=== PATIENT | male | born 1970 | race Caucasian/White ===

== ENCOUNTER → 2020-07-30 | Outpatient (CLI) | payer OTHER | LOC: SJCVCIMAG 08:44 | PROVIDERS: ATTEND Internal Medicine Cardiovascular Disease | DX: R00.0 Tachycardia, unspecified (principal); I49.3 Ventricular premature depolarization; I25.10 Atherosclerotic heart disease of native coronary artery without angina pectoris; R07.9 Chest pain, unspecified; R06.00 Dyspnea, unspecified; R53.83 Other fatigue ==

== ENCOUNTER 2020-08-03 07:59 | Observation (INO) | payer OTHER ==
[2020-08-03] VITALS (11 sets, daily range): BP systolic 108–148; BP diastolic 59–82
[~2020-08-03] VITALS: Ht 172.7 cm; Wt 102.1 kg
[2020-08-03 08:49] LABS: HEMATOCRIT 46.7 % (42.0-52.0); HEMOGLOBIN 15.8 gm/dL (14.0-18.0); MCH 30.6 pg (26.0-34.0); MCHC 33.9 g/dL (28.0-37.0); MCV 90.4 fL (80.0-100.0); RBC 5.17 mil/uL (4.50-6.00); RDW 13.2 % (10.5-14.5); WBC 7.9 thou/uL (4.0-11.0)
[2020-08-03] MEDS ORDERED: LIPITOR40 MG PO (08:50)
[2020-08-03] MEDS ORDERED: ASA81BEC PO (08:50)
[2020-08-03] MEDS ORDERED: TOPROL XL50 MG PO (08:51)
[2020-08-03] MEDS ORDERED: NITROSTAT0.4 M1 SUBLING (08:51)
[2020-08-03] MEDS ORDERED: SUPER THERAVIT1 EACH PO (08:52)
[2020-08-03 09:00] LABS: CREATININE 0.9 mg/dL (0.7-1.3); POTASSIUM 4.3 mmol/L (3.5-5.1)
--- NOTE | 2020-08-03 10:16 | NUR ---
PT PASSED REVERSE BARBEAU TEST ON BOTH EXTREMITIES. PRIOR TO INITIATION OF CATH PROCEDURE
[2020-08-03] MEDS ORDERED: EFFIENT10 MG PO (13:42)
--- NOTE | 2020-08-03 15:31 | EKG ---
[place] [address] [employer] [place] [address] ELECTROCARDIOGRAM REPORT Name: RENE JENKINS Room #: 205- ADM IN M.R.#: [id number] Admission: 08/03/20 Attend Phys: Jose Delvalle MD Discharge: Date of : 68 Report #: [id number] [facility] Test Date: 2020-08-03 Test Time: 13:27:48 Pat Name: RENE JENKINS Department: Room: 205 P Gender: M Filler And Trimmer: LITTLE : 1970 Requested By: Jose Delvalle Order Number: [id number] : Humphrey Carpenter Measurements Intervals [place] Rate: 65 P: 18 SD: 176 QRS: -42 QRSD: 102 T: -42 QT: 377 QTc: 392 Interpretive Statements Sinus rhythm Left axis deviation Borderline T abnormalities, inferior leads Compared to ECG 12/21/2008 07:12:21 Left-axis deviation now present T-wave abnormality still present Electronically Signed On 08-03-2020 15:31:04 CDT by Humphrey Carpenter [email or web address] <ELECTRONICALLY SIGNED> By: Humphrey Carpenter MD, [facility] 08/03/20 1531 1327 Humphrey Carpenter MD, FAC /EPI
--- NOTE | 2020-08-03 16:26 | CATHLAB ---
[facility] [place] [address] INVASIVE PROCEDURE REPORT Name: RENE JENKINS Room #: 205-P ADM IN M.R.#: [id number] Admission: 08/03/20 Attend Phys: Jose Delvalle MD Discharge: Date of : 68 Report #: [id number] THIS REPORT FOR: cc: Trinity Hess MD, Cora A. MD Park, Jin S. MD ~ APPROVED REPORT Study performed: 08/03/2020 08:50:57 Patient Details Patient Status: Out-Patient Room #: The patient is a 49 year-old male Event Personnel Jose Delvalle Interior Design Instructor, Chrissie Luna RT(R)() Adin Hedrick Jordan RTR Monitor, Claudia Gautam RN tin can feeder Performed Art Access - R femoral artery* Art Access - L radial artery Left Heart Cath w/or w/o Coronaries [id number] [facility] Place w/wo Plasty Single CIRC 701386 31449 Initial Mod Sed Same Phys/QHP Gr5y 387118 61864 Mod Sed Same Phys/QHP Ea 275803 Hemostasis w/ Mynx Hemostasis with Hemoband Indication Dyspnea, Positive stress test, Chest pain Risk Factors Hypercholesterolemia, Coronary Artery DiseaseHypertension Previous Procedures/Diagnoses Previous CABG Procedure Narrative The right femoral was infiltrated with 1% Lidocaine subcutaneous anesthesia. IV conscious sedation was used throughout procedure with appropriate monitoring and was performed in the presence of a registered nurse who was an independent trained observer other than the physician performing the procedure. A PINNACLE 6FR Sheath sheath was inserted into the RFA^. Coronary angiography was performed using coronary diagnostic catheters. The right coronary system was accessed and visualized with a 5FR 3DRC #[id number] catheter. The left coronary system was accessed and visualized with a 5FR JL4 #[id number] catheter. [facility] [place] [address] INVASIVE PROCEDURE REPORT Name: [facility] Room #: [facility] IN .R.#: [id number] Admission: 08/03/20 Attend Phys: Jose Delvalle MD Discharge: Date of : 68 Report #: [id number] The left ventricle was accessed and visualized with a 5FR PIG 145 ANGLED #[id number] catheter. Left ventricular/Aortic Valve gradient assessed via catheter pullback. Pre-demployment femoral angiogram was performed . Closure device was deployed with a 6 Fr MYNXGRIP 6/7F #[id number]. The patient tolerated the procedure well and there were no complications associated with the procedure. There was no hematoma. Initially, 4ml Lidocaine 1% was given to the left wrist for left radial artery access. A 6fr Slender sheath was inserted into the left radial artery. Several 5Fr catheters were inserted to inject the coronary arteries, but with no success due to left subclavian tortuosity. After unsuccessful attempt through left radial artery, it was determined that the right femoral artery was a better approach. Intraoperative Conscious Sedation Sedation start time: 924 Case end Time: 1137 Fentanyl 200 mcg Versed 3 mg Fluoro Time: 37.15 minutes Dose: DAP 72612.70 cGycm2 5239 mGy Contrast Type and Amount: Omnipaque 350 ml Coronary Angiography The patient's coronary anatomy is left dominant. Diagnostic Cath Left Main The left main artery is a large-caliber vessel, patent with no flow-limiting lesions. LAD There is a total occlusion of the proximal LAD. There is a patent BOSS graft with an end-to-side anastomosis to the mid LAD. Circumflex The left circumflex artery is a dominant vessel. There is mild disease in the proximal segment. OM1 This is a moderate-sized caliber vessel, divides into 2 branches as it supplies the lateral and inferolateral lee. There are severe occlusions involving the ostium of OM1 and the bifurcation of the 2 branches, 70 to 90%. OM2 This is a moderate-sized caliber vessel, patent with no flow-limiting lesions. L PDA This is a small to moderate-sized caliber vessel with a moderate proximal stenosis, 50%. Right Coronary This is a small, nondominant vessel with a severe mid stenosis. Left Ventriculography [address] [address] INVASIVE PROCEDURE REPORT Name: RENE JENKINS Room #: 205-P [facility] IN M.R.#: [id number] Admission: 08/03/20 Attend Phys: Jose Delvalle MD Discharge: Date of : 68 Report #: [id number] Left Ventriculography was not performed. Ejection Fraction was >55% based off patient's Nuclear Cardiac Stress Test. An LVEDP was measured and there is no gradient across the outflow tract. Hemodynamics The aortic pressure is 140/77 mmHg with a mean of 106 mmHg. The left ventricular pressure is 127/2 mmHg with a mean of mmHg. The left ventricular end diastolic pressure is 9 mmHg. Pullback from the left ventricle to the aorta revealed a mm gradient across the aortic valve. PCI Technique Lesion Percutaneous coronary intervention was performed on the first obtuse marginal branch segment. The lesion stenosis prior to intervention was 80%% with MARYLIN 3 flow. A VISTA 6FR XB 3.5 #[id number] Guide Catheter was used to engage the ostium. A Luge Wire .014 x 182CM #[id number] Interventional Guidewire was used to cross the lesion. BALLOON DILATION A Balloon catheter Euphora RX 2.0 x12 #[id number] was inserted and inflated up to 8.00atm for 6seconds. Additional Inflation: 8.00atm for 7seconds. Additional Inflation: 14.00atm for 14seconds. Additional Inflation: 10 jeanette for 15 sec. Additional Inflation: 8 jeanette for 12 sec. Additional Inflation: 14 jeanette for 20 sec. Additional Inflation: 14 jeanette for 8 sec. These inflations were in both the OM1 lesion and the mid-circumflex lesion. STENT DEPLOYMENT A drug-eluting stent RESOLUTE ANGELES RX 2.25 X 12 #[id number] was inserted and inflated up to 18.00atm for 20seconds. Additional Inflation: 14.00atm for 15seconds. Additional Inflation: 18.00atm for 10seconds. Additional Inflation: 12 jeanette for 7 sec. Final angiography reveals 30 % stenosis with MARYLIN 3 flow. COMMENTS This actually represented the inferior branch, originating from the first OM vessel. PCI Technique Lesion 2 Percutaneous coronary intervention was performed on the second obtuse marginal branch segment. The lesion stenosis prior to intervention was 80% with MARYLIN 3 flow. A VISTA 6FR XB 3.5 #[id number] Guide Catheter was used to engage the ostium. A Luge Wire .014 x 182CM #[id number] [facility] [address] [place] [address] INVASIVE PROCEDURE REPORT Name: ALICERENE MONSERRATNAHOMIAYDE Room #: 205-P ADM IN .R.#: [id number] Admission: 08/03/20 Attend Phys: Jose Delvalle MD Discharge: Date of : 68 Report #: [id number] Interventional Guidewire was used to cross the lesion. Stent Deployment A drug-eluting stent RESOLUTE ANGELES RX 2.25 X 15 #[id number] was inserted and inflated up to 10atm for 17seconds. Additional Inflation: 14atm for 11seconds. Post Stent Deployment Balloon Dilation A Balloon catheter MINI TREK RX 2.0 X 12 #[id number] was inserted and inflated up to 18atm for 26seconds. A Balloon catheter NC TREK RX 2.50 X 8 was inserted and inflated up to 16 jeanette for 15 sec. Additional Inflation: 18 jeanette for 7 sec. Additional Inflation: 8 jeanette for 6 sec. Additional Inflation: 8 jeanette for 3 sec. Comments This actually represented the superior branch, originating from the first obtuse marginal artery. The stent was deployed in the first OM segment, just before the bifurcation of the 2 branches, extending into the superior branch. After the stent was deployed, there was shifting of the plaque into the ostium of the inferior branch. A second luge wire was placed through the stent strut, into the inferior branch. A 2.0 mm balloon was placed through the strut inflated up to 18 jeanette. PCI Technique Lesion 3 Percutaneous coronary intervention was performed on the mid circumflex artery segment. The lesion stenosis prior to intervention was 95% with MARYLIN 3 flow. A VISTA 6FR XB 3.5 #[id number] Guide Catheter was used to engage the ostium. A Luge Wire .014 x 182CM #[id number] Interventional Guidewire was used to cross the lesion. Stent Deployment A drug-eluting stent RESOLUTE ANGELES OTW 3.0 X 18 #[id number] was inserted and inflated up to 12atm for 13seconds. Post Stent Deployment Balloon Dilation A Balloon catheter TREK RX 2.75 X 12 #[id number] was inserted and inflated up to 12atm for 19seconds. A Balloon catheter NC TREK RX 3.25 X 12 was inserted and inflated up to 18 jeanette for 13 sec. Comments There was a severe occlusion involving the mid left circumflex and ostium of the first obtuse marginal artery. After balloon dilatation of the ostial lesion in OM1, the 3.0 mm drug-eluting stent was placed in the mid left circumflex artery and extending into the proximal OM1 [address] [address] INVASIVE PROCEDURE REPORT Name: RENE JENKINS Room #: 205-P [facility] IN ..#: [id number] Admission: 08/03/20 Attend Phys: Jose Delvalle MD Discharge: Date of : 68 Report #: [id number] vessel. After the stent was deployed, there was snowplowing of the plaque into the mid left circumflex artery. A second luge wire was placed through the stent strut, into the distal left circumflex artery. A 2.75 mm semicompliant balloon was inflated through the strut. Post balloon dilatation, there was a residual 0 30% stenosis. Conclusion 1. Successful insertion of a drug-eluting stent into the mid segment of the left circumflex artery, extending into the proximal segment of the first obtuse marginal artery. 2. Successful insertion of drug-eluting stents into both the inferior and superior branches originating from the first obtuse marginal artery. 3. Successful balloon dilatation through the mid left circumflex stent strut, leaving a 30% residual. Treat medically at this time. 4. There is a patent BOSS graft with a end-to-side anastomosis to the mid LAD. 5. The RCA is a small, nondominant vessel with severe diffuse disease. Medical therapy is recommended. 6. There is normal LV systolic function. 7. Recommend dual antiplatelet therapy and aggressive risk factor management. <ELECTRONICALLY SIGNED> By: Jose Delvalle MD 08/03/20 1625 1625 1625 Jose Delvalle MD /INF
--- NOTE | 2020-08-03 17:44 | NUR ---
PATIENT ADMITTED TO CCU FROM [facility], SEE PHYSICAN REPORT. SHAHID PHELAN RN, REPORTS PATIENT RECEIVED 1 STENT TO MID CIRC, 1 STENT TO OM1 AND 1 STENT TO OM2. POST [facility] EKG OBTAINED. PATIENT HAS NO C/O CHEST PAIN OR SHORTNESS OF BREATH SINCE THIS RN ASSUMED CARE. PATIENT HAS DRESSING C/D/I ON RIGHT GROIN AND LEFT WRIST. PEDAL PULSES PRESENT. VSS.
[2020-08-04 04:00] VITALS: BP 141/75
[2020-08-04 05:26] LABS: HEMATOCRIT 43.7 % (42.0-52.0); HEMOGLOBIN 15.1 gm/dL (14.0-18.0); MCH 30.6 pg (26.0-34.0); MCHC 34.5 g/dL (28.0-37.0); MCV 88.7 fL (80.0-100.0); RBC 4.93 mil/uL (4.50-6.00); RDW 13.2 % (10.5-14.5); WBC 8.5 thou/uL (4.0-11.0)
[2020-08-04 05:46] LABS: ALBUMIN 3.6 g/dL (3.4-5.0); CALCIUM 8.4 mg/dL (8.5-10.1); CREATININE 0.8 mg/dL (0.7-1.3); POTASSIUM 4.2 mmol/L (3.5-5.1); TOTAL PROTEIN 6.7 g/dL (6.4-8.2)
--- NOTE | 2020-08-04 06:13 | NUR ---
PATIENTS CARES WAS ASSUMED AT SHIFT CHANGE. PATIENT WAS ASSESSED AND MEDS WERE PASSED. PATIENTS IV APPERED INFELTRATED WHILE AT BEDSIDE REPORT. IVF WERE FINISHED. PATIENT DID SLEEP MOST OF THIS SHIFT. ROUNDS WERE MADE. THE BED ALARM IS ON. THE BED IS IN A LOW AND LOCKED POSITION.
--- NOTE | 2020-08-04 07:33 | EKG ---
[address] [place] [address] ELECTROCARDIOGRAM REPORT Name: ALICERENE Room #: 205-[facility]..#: [id number] Admission: 08/03/20 Attend Phys: Jose Delvalle MD Discharge: Date of : 68 Report #: [id number] [facility] Test Date: 2020-08-04 Test Time: 07:13:46 Pat Name: RENE JENKINS Department: Room: 205 Gender: M Testboard Operator: LITTLE : 1970 Requested By: Joes Delvalle Order Number: [id number] MD: Humphrey Carpenter Measurements Intervals [place] Rate: 61 P: 16 SC: 166 QRS: -18 QRSD: 95 T: -55 QT: 384 QTc: 387 Interpretive Statements Sinus rhythm Borderline left axis deviation Borderline T abnormalities, inferior leads Compared to ECG 08/03/2020 13:27:48 No significant changes Electronically Signed On 08-04-2020 7:33:31 CDT by Humphrey Carpenter [email or web address] <ELECTRONICALLY SIGNED> By: Humphrey Carpenter MD, [facility] 08/04/2033 2 2 Humphrey Carpenter MD, FACC /EPI
[2020-08-04 08:00] VITALS: BP 123/76
--- NOTE | 2020-08-04 08:43 | NUR ---
DR. ORTA VISITED WITH PATIENT, ORDERS TO DC THIS SHIFT. CARDIAC REHAB TO SEE PATIENT BEFORE DC. PATIENT IS A/O X3, FC, AD COREY AND NO C/O CHEST PAIN OR SHORTNESS OF BREATH. SEE ASSESSMENT FOR MORE INFO. PT WILL BE DC TO HOME.
[2020-08-04 09:40] VITALS: BP 123/76
--- NOTE | 2020-08-04 10:32 | NUR ---
08/04/2020 1030: PATIENT'S TELEMETRY REMOVED, IV DC'D, EDUCATION GIVEN TO PATIENT ABOUT NEW MEDICATION AND CARE FOR ARTERIAL SITES. PATIENT SHOWERED AND DRESSED AD COREY. PATIENT DC TO HOME IN PRIVATE VEHICLE DRIVEN BY . NO QUESTIONS OR CONCERNS ATT. NO C/O CHEST PAIN OR SHORTNESS OF BREATH.
== END 2020-08-04 11:28 | disposition home or self-care (01) ==
LOC: CATH 07:59 → 2N 12:04 → CATH 12:24 → 2N 12:47 → CATH 14:16 → 2N 08-04 11:28
PROVIDERS: ADMIT Internal Medicine Cardiovascular Disease; ATTEND Internal Medicine Cardiovascular Disease
DX: I25.110 Atherosclerotic heart disease of native coronary artery with unstable angina pectoris (principal); I10 Essential (primary) hypertension; E78.5 Hyperlipidemia, unspecified; E78.00 Pure hypercholesterolemia, unspecified; Z95.1 Presence of aortocoronary bypass graft